=== PATIENT | female | born 1955 | race Caucasian/White ===

== ENCOUNTER 2020-07-12 09:45 | Emergency (ER) | payer BC ==
[~2020-07-12] VITALS: Ht 165.1 cm; Wt 83.5 kg
[2020-07-12] MEDS ORDERED: IBUP600 PO (12:08)
[2020-07-12] MEDS ORDERED: METPRE4DP PO (12:08)
[2020-07-12] MEDS ORDERED: Norco 5-325 Ta1 EACH PO (12:08)
== END 2020-07-12 12:19 | disposition home or self-care (01) ==
LOC: ER 09:45
DX: M54.16 Radiculopathy, lumbar region (principal); I10 Essential (primary) hypertension; E78.5 Hyperlipidemia, unspecified
CPT/HCPCS: 96374; 96375; 99283-25; A9270; J1100; J1885; J2270